=== PATIENT | female | born 1985 | race Caucasian/White ===

== ENCOUNTER 2016-04-27 02:05 | Inpatient (IN) | payer BC ==
[~2016-04-27] VITALS: Ht 165.1 cm; Wt 72.6 kg
[2016-04-27] VITALS (9 sets, daily range): BP systolic 79–120; RESP 16–18; TEMP 97.6–98.1; Ht 165.1 cm; Wt 72.6 kg
[2016-04-27] MEDS ORDERED: PENICILLIN G 5 MU in SODIUM CHLORIDE 0.9% 250 ML IV ONE (02:35)
[2016-04-27] MEDS ORDERED: AMPICILLIN 2,000 MG in SODIUM CHLORIDE 0.9% 100 ML IV ONE (02:35)
[2016-04-27] MEDS ORDERED: TERBUTALINE 1 MG/ML VIAL SUBQ PRN (02:35)
[2016-04-27] MEDS ORDERED: FAMOTIDINE 20 MG TAB PO PRN (02:35)
[2016-04-27] MEDS ORDERED: ONDANSETRON 4 MG VIAL IV PRN (02:35)
[2016-04-27] MEDS ORDERED: ALU/MAG/SIM 30 ML UDC PO PRN (02:35)
[2016-04-27] MEDS ORDERED: ACETAMINOPHEN 325 MG TAB PO PRN (02:35)
[2016-04-27] MEDS ORDERED: METOCLOPRAMIDE 10 MG/2 ML VIAL IV PUSH PRN (02:35)
[2016-04-27] MEDS ORDERED: OXYTOCIN 15 UNITS/250 ML NS 250 ML IV SCH (02:35)
[2016-04-27] MEDS ORDERED: CEFAZOLIN (LD/OB) 100 ML IV PRN (02:35)
[2016-04-27] MEDS ORDERED: FAMOTIDINE 20 MG INJ IV PRN (02:35)
[2016-04-27] MEDS ORDERED: LIDOCAINE 1% BUFFERED 1 ML SYR INTRADERM PRN (02:35)
[2016-04-27] MEDS ORDERED: LIDOCAINE 1% 30 ML PF INFILTRATE ONE (02:35)
[2016-04-27] MEDS ORDERED: ROPIV/FENT 0.2%-2MCG/ML 100 ML EPIDURAL ONE (02:55)
[2016-04-27] MEDS ORDERED: FENTANYL 100 MCG/2 ML AMP ONE (02:56)
[2016-04-27] MEDS: LACT RINGERS 1,000 ML IV SCH ×2 (03:04→05:46)
[2016-04-27] MEDS ORDERED: SODIUM CHLORIDE 0.9% 500 ML IV PRN (04:15)
[2016-04-27] MEDS ORDERED: LACT RINGERS 500 ML IV PRN (04:15)
[2016-04-27] MEDS ORDERED: FENTANYL 100 MCG/2 ML AMP EPIDURAL ONE (04:15)
[2016-04-27] MEDS ORDERED: ROPIV/FENT 0.2%-2MCG/ML 100 ML EPIDURAL SCH (04:15)
[2016-04-27] MEDS ORDERED: LACT RINGERS 500 ML IV ONE (04:15)
[2016-04-27] MEDS ORDERED: PENICILLIN G 2.5 MU in SODIUM CHLORIDE 0.9% 100 ML IV SCH (06:35)
[2016-04-27] MEDS ORDERED: AMPICILLIN 1,000 MG in SODIUM CHLORIDE 0.9% 50 ML IV SCH (06:35)
[2016-04-27] MEDS: OXYTOCIN 15 UNITS/250 ML NS 250 ML IV SCH ×2 (07:33→08:30)
[2016-04-27] MEDS ORDERED: BUPIVACAINE 0.25% PF 10ML EPIDURAL ONE (07:46)
[2016-04-27] MEDS ORDERED: BISACODYL 10 MG SUPP RECTAL PRN (07:50)
[2016-04-27] MEDS ORDERED: DERMOPLAST SPRAY TOPICAL PRN (07:50)
[2016-04-27] MEDS ORDERED: MEASLES,MUMPS,RUBELLA VAC SUBQ.VACC ONE (07:50)
[2016-04-27] MEDS ORDERED: SALINE FLUSH 10 ML FLUSH PRN (07:50)
[2016-04-27] MEDS ORDERED: ASTRINGENT MED PADS 40'S TOPICAL PRN (07:50)
[2016-04-27] MEDS ORDERED: MISOPROSTOL 100 MCG TAB RECTAL ONE (07:50)
[2016-04-27] MEDS ORDERED: TDaP 0.5 ML VIAL IM.VACC ONE (07:50)
[2016-04-27] MEDS ORDERED: MAG HYDROX 30 ML UDC PO PRN (07:50)
[2016-04-27] MEDS ORDERED: ZOLPIDEM 5 MG TAB PO PRN (07:50)
[2016-04-27] MEDS ORDERED: MISOPROSTOL 100 MCG TAB ONE (07:54)
[2016-04-27] MEDS ORDERED: SALINE FLUSH 10 ML FLUSH SCH (08:00)
[2016-04-27] MEDS ORDERED: **ONLY ANESTEHSIA MAY ORDER OPIATES WHILE ON EPIDURAL XX SCH (08:00)
[2016-04-27] MEDS: DOCUSATE SOD 100 MG CAP PO SCH (09:00)
[2016-04-27] MEDS: Ibuprofen 600 MG TAB PO SCH ×2 (12:04→17:51)
[2016-04-28] MEDS: Ibuprofen 600 MG TAB PO SCH ×5 (00:12→23:21)
[2016-04-28 01:31] VITALS: BP_SYST 95; RESP 16; TEMP 97.7
[2016-04-28 05:46] VITALS: BP_SYST 126; RESP 16; TEMP 97.5
[2016-04-28] MEDS ORDERED: SODIUM CHLORIDE 0.9% FLUSH BAG 500 ML IV SCH (06:00)
[2016-04-28 08:51] VITALS: BP_SYST 100; RESP 16; TEMP 97.9
[2016-04-28] MEDS: DOCUSATE SOD 100 MG CAP PO SCH (08:52)
[2016-04-28 13:19] VITALS: BP_SYST 111; RESP 16; TEMP 98
[2016-04-28] MEDS ORDERED: LIDOCNE/PRILOCNE CR 5 GM TOPICAL ONE (17:02)
[2016-04-28 17:17] VITALS: BP_SYST 125
[2016-04-28 17:18] VITALS: RESP 18; TEMP 97.6
[2016-04-29 05:31] VITALS: BP_SYST 116; RESP 18; TEMP 98.2
[2016-04-29] MEDS: Ibuprofen 600 MG TAB PO SCH ×2 (05:32→12:04)
[2016-04-29] MEDS: DOCUSATE SOD 100 MG CAP PO SCH (08:28)
[2016-04-29 09:17] VITALS: BP_SYST 135; TEMP 97.8
[2016-04-29 09:18] VITALS: RESP 18
[2016-04-29] MEDS ORDERED: TDaP 0.5 ML VIAL IM.VACC ONE (11:59)
== END 2016-04-29 13:52 | disposition home or self-care (01) | DRG 775 ==
LOC: LDOP 02:05 → LD 02:23 → OB 09:40
PROVIDERS: ADMIT Obstetrics & Gynecology; ATTEND Obstetrics & Gynecology
PROC: 10E0XZZ Delivery of Products of Conception, External Approach (ICD-10-PCS; principal; 2016-04-27)
PROC: 0KQM0ZZ Repair Perineum Muscle, Open Approach (ICD-10-PCS; 2016-04-27)
DX: O70.1 Second degree perineal laceration during delivery (principal); Z37.0 Single live birth; Z3A.37 37 weeks gestation of pregnancy
CPT/HCPCS: 82803; 85025